=== PATIENT | female | born 1930 | race Caucasian/White ===

== ENCOUNTER 2016-04-30 15:33 | Emergency (ER) | payer OTHER ==
[~2016-04-30 15:33] MED LIST: ASAB PO; B121000P IM; CARDCD120 PO; CARTIA XT240 MG/24 PO; CENTRUM TAB1 TAB PO; CORDARONE PO; COREG3 PO; CRESTOR20 MG PO; DEMA10T PO; ECONOPRED PL1 % OPH; ELIQUIS 5 MG TAB5 MG PO; HYZAAR 100/25 T1 TAB PO; ILEVRO1.7 ML OPH; IMDUR30 PO; JANTOVEN1 MG PO; JANTOVEN4 MG PO; JANTOVEN5 MG PO; JANTOVEN6 MG PO; JANTOVEN7.5 MG PO; KLOR-CON 1010 MEQ PO; KLOR-CON M1010 MEQ PO; KLOR-CON M2020 MEQ PO; L20 PO; LEVOTHYROXIN50 MCG PO; LIPITOR10 PO; LOP25 PO; MCZ25 PO; MULTIPLE VIT PO; MULTIVIT/MIN PO; NITROSTAT0.4 MG SL; NORV25 PO; NORV5 PO; OS500+D PO; OYST-CAL500 MG PO; PROAIR HFA INH; RESTASIS OPH; TAMBO50 PO; TAMBOCOR150 MG PO; TOBRAMYCIN0.3 % OPH; V80 PO; VITAMIN B-122500 MCG SL; VITAMIN D; VITAMIN D1000 UNI1 PO; VITAMIN D31000 UNIT PO; XARELTO20 MG PO; ZAROX2.5B PO; [UNRECOGNIZED DRUG - OTHER] PO
== END 2016-04-30 16:33 | disposition home or self-care (01) ==
LOC: ER 15:33
DX: S29.9XXA Unspecified injury of thorax, initial encounter (principal); I10 Essential (primary) hypertension; I48.0 Paroxysmal atrial fibrillation; Z88.5 Allergy status to narcotic agent; Z88.8 Allergy status to other drugs, medicaments and biological substances; Z79.899 Other long term (current) drug therapy; W19.XXXA Unspecified fall, initial encounter
CPT/HCPCS: 71101; 99284